=== PATIENT | male | born 1965 | race African-American/Black ===

== ENCOUNTER 2024-12-24 17:11 | Emergency (ER) | payer OTHER ==
[2024-12-24] MEDS ORDERED: NA CHLORIDE 0.9% 1,000 ML ONE (17:22)
[2024-12-24] MEDS ORDERED: MORPHINE 4 MG/ML SYR ONE (17:22)
[2024-12-24] MEDS ORDERED: FAMOTIDINE 20 MG/2 ML VIAL IV ONE (17:37)
[2024-12-24 17:41] LABS: Absolute Lymphocytes (CBC) 0.6 K/uL (0.7-4.9); Hematocrit 44.1 % (39.6-49.0); Hemoglobin 14.8 g/dL (13.6-17.9); MCH 26.8 pg (27.0-35.0); MCHC 33.7 g/dL (32.0-36.0); MCV 79.5 fL (80-100); MPV 7.8 fL (7.6-11.3); Nucleated RBC Absolute Count 0.0 (0-0); Nucleated Red Blood Cells % 0.3 % (0-0); RBC Red Blood Cell Count 5.54 M/uL (4.33-5.43); White Blood Count 4.70 thou/uL (4.3-10.9)
[2024-12-24 17:58] LABS: ALT/SGPT 18.0 U/L (16-61); AST/SGOT 12.0 U/L (15-37); Albumin 3.4 g/dL (3.4-5.0); Albumin/Globulin Ratio 0.8 (1.1-1.8); Alkaline Phosphatase 66.0 U/L (45-117); Anion Gap 10.6 mEq/L (5.0-15.0); BUN Blood Urea Nitrogen 16.0 mg/dL (7-18); Globulin 4.5 g/dL (2.3-3.5); Glucose Level 103.0 mg/dL (74-106); Potassium 3.6 mEq/L (3.5-5.1)
--- NOTE | 2024-12-24 18:41 | RAD REPORT ---
EXAMINATION: Abdomen Pelvis W Contrast CLINICAL INDICATION: Male, 59 years old.ABD PAIN TECHNIQUE: CT abdomen and pelvis was performed, after the administration of IV contrast, as per [facility] protocol. Axial, sagittal and coronal reconstructions were obtained. One or more of the following dose reduction techniques were used: Automated exposure control, adjustment of the mA and/o r kV according to patient size, and/or iterative reconstruction. Unless otherwise specified, incidental findings do not require dedicated imaging follow-up. [id number]. COMPARISON: No prior exams FINDINGS: LOWER CHEST: No acute process identified.No significant pericardial effusion. Mild circumferential th ickening of the distal esophagus which could reflect esophagitis. UPPER GI: No significant abnormality. LIVER: Hepatic steatosis, but otherwise unremarkable. GALLBLADDER/BILE DUCTS: No biliary ductal dilatation.? PANCREAS: No mass, ductal dilation, or dmitri-pancreatic fluid. SPLEEN: Unremarkable. ADRENALS: No adrenal masses. KIDNEYS AND URETERS: No hydronephrosis.Low density and/or too small to characterize renal lesions whi ch are statistically benign. ABDOMINAL AORTA AND OTHER VESSELS: Mild atherosclerotic changes. PERITONEUM: No abnormal free fluid. No free air. LYMPH NODES: No pathologic lymphadenopathy. ABDOMINAL WALL: Unremarkable SMALL BOWEL/COLON: Small bowel has normal course and caliber. No colonic wall thickening or pericolon ic inflammatory changes.Normal appendix. URINARY BLADDER: Underdistended but grossly unremarkable. REPRODUCTIVE ORGANS: Moderate prostatomegaly. Median lobe hypertrophy. MUSCULOSKELETAL: Lytic expansile lesion in the left superior pubic ramus, left subtrochanteric region , and left femoral head. These have nonaggressive appearances. No other lesions identified within the visualized axial skeleton. ADDITIONAL FINDINGS: None. IMPRESSION: No acute findings within the abdomen or pelvis. Incidental findings as noted above.
--- NOTE | 2024-12-24 18:52 | EDPHYS ---
Physician Documentation [facility] Name: Sergey Lewis Age: 59 yrs Sex: Male : 1965 Arrival Date: 12/24/2024 Time: 17:11 Bed 18 Private MD: ED Physician Nam Arellano HPI: 12/24 17:12 This 59 yrs old Male presents to ER via Unassigned with complaints of Left sided ms3 abdominal pain. 17:14 59-year-old male with past medical history of glomerulonephritis, hypertension presents ms3 to the emergency department for left upper quadrant abdominal pain that began yesterday. Patient states the pain is a 10/10. He denies radiation of the pain. Patient endorses nausea and vomiting. Patient denies fevers or chills.. Historical: - Allergies: 18:31 PENICILLINS; kj2 - Immunization history:: Adult Immunizations unknown. - Infectious Disease History:: Denies. - Social history:: Smoking status: unknown. ROS: 17:14 Constitutional: Negative for fever, and chills. Cardiovascular: Negative for chest ms3 pain, and palpitations. Respiratory: Negative for shortness of breath, cough, wheezing, and pleuritic chest pain, 17:14 MS/Extremity: Negative for injury and deformity, Skin: Negative for injury, rash, and discoloration, 17:14 Abdomen/GI: Positive for abdominal pain, nausea and vomiting, Exam: 17:14 Constitutional: This is a well developed, well nourished patient who is awake, alert, ms3 and in no acute distress. Cardiovascular: Regular rate and rhythm with a normal S1 and S2. No gallops, murmurs, or rubs. Normal PMI, no JVD. No pulse deficits. Respiratory: Lungs have equal breath sounds bilaterally, clear to auscultation and percussion. No rales, rhonchi or wheezes noted. No increased work of breathing, no retractions or nasal flaring. Skin: Warm, dry with normal turgor. Normal color with no rashes, no lesions, and no evidence of cellulitis. MS/ Extremity: Pulses equal, no cyanosis. Neurovascular intact. Full, normal range of motion. 17:14 Abdomen/GI: Inspection: abdomen appears normal, Bowel sounds: normal, in all quadrants, Palpation: moderate abdominal tenderness, in the left upper quadrant and left lower quadrant, Vital Signs: 17:10 BP 150 / 100; Pulse 69; Resp 20; Temp 98.2; Pulse Ox 100% ; Weight 83.91 kg; Height 5 kj2 ft. 7 in. ; Pain 8/10; 18:10 BP 148 / 99; Pulse 66; Resp 20; Pulse Ox 100% ; kj2 19:15 BP 140 / 86; Pulse 70; Resp 18; Temp 98.2; Pulse Ox 100% on R/A; kj2 17:10 Body Mass Index 28.97 (83.91 kg, 170.18 cm) kj2 17:10 Pain Scale: Adult kj2 MDM: 17:12 Medical Screening Exam initiated ms3 17:14 Differential diagnosis: diverticulitis, non-specific abd pain, pancreatitis. ms3 18:52 Data reviewed: vital signs, nurses notes, lab test result(s), radiologic studies, CT ms3 scan, and as a result, I will discharge patient. I considered the following discharge prescriptions or medication management in the emergency department Medications were administered in the Emergency Department. See MAR. Independent interpretation of the following test(s) in the Emergency Department CT Scan: My interpretation is CT abdomen pelvis images reviewed by me did not reveal free air. Counseling: I had a detailed discussion with the patient and/or guardian regarding the historical points, exam findings, and any diagnostic results supporting the discharge/admit diagnosis, lab results, radiology results, the need for outpatient follow up, to return to the emergency department if symptoms worsen or persist or if there are any questions or concerns that arise at home. Special discussion: I discussed with the patient the need to follow-up with the PCP/specialist for the noted incidental finding on X-ray/CT scanning. ED course: Discussed lytic lesions in left pelvis with patient. Patient to follow-up with primary care physician in 2 to 3 days. Patient given contact information for Dr. Espinoza to follow-up in 2 to 3 days. Patient understands and agrees with plan. All questions were answered. Return precautions were discussed to include worsening symptoms, or any other concerns. On reevaluation patient's symptoms improved, patient is alert and orient x 4, no apparent distress, nontoxic-appearing, speaking full sentences.. 12/24 17:14 Order name: CBC with Diff; Complete Time: 17:56 ms3 12/24 17:14 Order name: CMP; Complete Time: 18:05 ms3 12/24 17:14 Order name: CT Abd/Pelvis - IV Contrast Only; Complete Time: 18:47 ms3 12/24 17:14 Order name: IV Saline Lock; Complete Time: 17:35 ms3 12/24 17:14 Order name: Labs collected and sent; Complete Time: 17:35 ms3 Administered Medications: 17:35 Drug: morphine IVP or IV 4 mg IVP once over 4 mins Route: IVP; Infused Over: 4 mins; kj2 Site: right antecubital; 19:18 Follow up: Response: No adverse reaction kj2 17:35 Drug: NS 0.9% IV 1000 ml IV at 1 bolus Per protocol; to be given as a bolus over 60 kj2 minutes Route: IV; Rate: 1 bolus; Site: right antecubital; 19:18 Follow up: IV Status: Completed infusion; IV Intake: 1000ml kj2 17:40 Drug: Famotidine IVP 20 mg IVP once; dilute with 10 mL 0.9% NaCl; give over 2 minutes kj2 Route: IVP; Site: right antecubital; 19:18 Follow up: Response: No adverse reaction kj2 Disposition Summary: 12/24/24 18:51 Discharge Ordered Notes: Location: Home ms3 Condition: Stable ms3 Diagnosis - Other abdominal pain ms3 - Essential (primary) hypertension ms3 Followup: ms3 - With: Kyle Fernandez MD - When: 2 - 3 days - Reason: Recheck today's complaints Discharge Instructions: - Discharge Summary Sheet ms3 - Hypertension, Adult ms3 - Abdominal Pain, Adult, [id number] ms3 - DASH Eating Plan ms3 Forms: - Medication Reconciliation Form ms3 - Antibiotic Education ms3 - Prescription Opioid Use ms3 - Patient Portal Instructions ms3 - Leadership Thank You Letter ms3 Prescriptions: - dicyclomine 10 mg Oral capsule - take 1 capsule ORAL route 3 times per day; 21 capsule; Refills: 0, Product ms3 Selection Permitted Signatures: Dispatcher [employer] EDMS Nam Arellano DO DO ms3 Tory Brady, RN RN kj2 Corrections: (The following items were deleted from the chart) 17:14 17:14 CBC+H.LAB.BRZ ordered. EDMS EDMS 17:14 17:14 COMPREHENSIVE METABOLIC PANEL+C.LAB.BRZ ordered. EDMS EDMS : 17:14 Abdomen Pelvis W Con+CT.RAD.BRZ ordered. EDMS EDMS
--- NOTE | 2024-12-24 18:52 | ER ---
Nurse's Notes [facility] Name: Sergey Lewis Age: 59 yrs Sex: Male : 1965 Arrival Date: 12/24/2024 Time: 17:11 Bed 18 Private MD: Diagnosis: Other abdominal pain;Essential (primary) hypertension Presentation: 12/24 17:10 Chief complaint: EMS states: abdominal pain in left lower quadrant since yesterday. kj2 Coronavirus screen: Client denies travel out of the [place] in the last 14 days. Ebola Screen: No symptoms or risks identified at this time. Initial Sepsis Screen: Does the patient meet any 2 criteria? No. Patient's initial sepsis screen is negative. Does the patient have a suspected source of infection? No. Patient's initial sepsis screen is negative. Risk Assessment: Do you want to hurt yourself or someone else? Patient reports no desire to harm self or others. Onset of symptoms was December 24, 2024. 17:10 Method Of Arrival: EMS: [facility] 2 17:10 Acuity: SADAF 3 kj2 Triage Assessment: 17:10 General: Appears in no apparent distress. Behavior is cooperative. Pain: Complains of kj2 pain in left lower quadrant and left upper quadrant Pain currently is 8 out of 10 on a pain scale. Neuro: Level of Consciousness is awake, alert, obeys commands, Oriented to person, place, time, situation. Cardiovascular: Patient's skin is warm and dry. Respiratory: Airway is patent Respiratory effort is unlabored. GI: Abdomen is non-distended. : No signs and/or symptoms were reported regarding the genitourinary system. Historical: - Allergies: 18:31 PENICILLINS; kj2 - Immunization history:: Adult Immunizations unknown. - Infectious Disease History:: Denies. - Social history:: Smoking status: unknown. Screenin:10 [facility] ED Fall Risk Assessment (Adult) History of falling in the last 3 months, kj2 including since admission No falls in past 3 months (0 pts) Confusion or Disorientation No (0 pts) Intoxicated or Sedated No (0 pts) Impaired Gait No (0 pts) Mobility Assist Device Used No (0 pt) Altered Elimination No (0 pt) Score/Fall Risk Level 0 - 2 = Low Risk Maintained a safe environment, Hourly rounding (assess needs \T\ fall precautionary measures) done. Abuse screen: Denies threats or abuse. Denies injuries from another. Nutritional screening: No deficits noted. Tuberculosis screening: No symptoms or risk factors identified. Assessment: 17:10 General: see triage assessment. kj2 17:10 GI: Bowel sounds present X 4 quads. Abd is non tender. kj2 18:10 Reassessment: Patient appears in no apparent distress at this time. Patient and/or kj2 family updated on plan of care and expected duration. Pain level reassessed. Patient is alert, oriented x 3, equal unlabored respirations, skin warm/dry/pink. 19:09 Reassessment: Patient appears in no apparent distress at this time. Patient and/or kj2 family updated on plan of care and expected duration. Pain level reassessed. Patient is alert, oriented x 3, equal unlabored respirations, skin warm/dry/pink. Vital Signs: 17:10 BP 150 / 100; Pulse 69; Resp 20; Temp 98.2; Pulse Ox 100% ; Weight 83.91 kg; Height 5 kj2 ft. 7 in. ; Pain 8/10; 18:10 BP 148 / 99; Pulse 66; Resp 20; Pulse Ox 100% ; kj2 19:15 BP 140 / 86; Pulse 70; Resp 18; Temp 98.2; Pulse Ox 100% on R/A; kj2 17:10 Body Mass Index 28.97 (83.91 kg, 170.18 cm) kj2 17:10 Pain Scale: Adult kj2 ED Course: 17:10 Patient has correct armband on for positive identification. Bed in low position. Call kj2 light in reach. Provided Education on: call light. 17:12 Patient arrived in ED. ms3 17:12 Nam Arellano DO is Attending Physician. ms3 17:28 Tory Brady, IRMA is Primary Nurse. kj2 17:35 Initial lab(s) drawn, by geophysical laboratory chief, sent to lab. Inserted saline lock: 20 gauge in left ts3 antecubital area, using aseptic technique. Blood collected. Flushed with 10 mL NS. 18:27 CT Abd/Pelvis - IV Contrast Only In Process Unspecified. EDMS 18:27 Triage completed. kj2 18:51 Kyle Fernandez MD is Referral Physician. ms3 19:17 No provider procedures requiring assistance completed. IV discontinued, intact, kj2 bleeding controlled, No redness/swelling at site. Pressure dressing applied. Administered Medications: 17:35 Drug: morphine IVP or IV 4 mg IVP once over 4 mins Route: IVP; Infused Over: 4 mins; kj2 Site: right antecubital; 19:18 Follow up: Response: No adverse reaction kj2 17:35 Drug: NS 0.9% IV 1000 ml IV at 1 bolus Per protocol; to be given as a bolus over 60 kj2 minutes Route: IV; Rate: 1 bolus; Site: right antecubital; 19:18 Follow up: IV Status: Completed infusion; IV Intake: 1000ml kj2 17:40 Drug: Famotidine IVP 20 mg IVP once; dilute with 10 mL 0.9% NaCl; give over 2 minutes kj2 Route: IVP; Site: right antecubital; 19:18 Follow up: Response: No adverse reaction kj2 Medication: 19:16 VIS not applicable for this client. kj2 Intake: 19:18 IV: 1000ml; Total: 1000ml. kj2 Outcome: 18:51 Discharge ordered by . ms3 19:17 Discharged to home ambulatory, kj2 19:17 Condition: stable 19:17 Discharge instructions given to patient, Instructed on discharge instructions, follow up and referral plans. Demonstrated understanding of instructions, follow-up care, 19:24 Patient left the ED. kj2 Signatures: Dispatcher [employer] EDMS Nam Arellano DO DO ms3 Tory Brady RN RN kj2 Yana Miguel ts3
[2024-12-24 19:53] VITALS: O2SAT 100
[2024-12-24 19:55] VITALS: BP 140/86; TEMP 98.2
== END 2024-12-24 19:24 | disposition home or self-care (01) ==
LOC: ER 17:11
DX: R10.12 Left upper quadrant pain (principal); I10 Essential (primary) hypertension
CPT/HCPCS: 96361; 85025; 36415; 80053; 74177; 96375; 96374; 99284; Q9967; J7030